=== PATIENT | female | born 1950 | race Caucasian/White ===

== ENCOUNTER 2019-04-09 06:00 | Outpatient (RCR) | payer MEDICARE, OTHER, SELFPAY | END 2019-05-09 00:01 | LOC: GPT 06:00 | PROVIDERS: Family Provider Nurse Practitioner Family; Visit Provider Family Medicine | DX: S29.001D Unspecified injury of muscle and tendon of front wall of thorax, subsequent encounter (principal); X58.XXXD Exposure to other specified factors, subsequent encounter | CPT/HCPCS: 97110 ×7; 97140 ×7 ==

== ENCOUNTER 2019-05-10 06:00 | Outpatient (RCR) | payer MEDICARE, OTHER, SELFPAY | END 2019-06-09 23:59 | disposition home or self-care (01) | LOC: GPT 06:00 | PROVIDERS: Family Provider Nurse Practitioner Family; PCP Nurse Practitioner Family; Visit Provider Family Medicine | DX: S29.011D Strain of muscle and tendon of front wall of thorax, subsequent encounter (principal); X58.XXXD Exposure to other specified factors, subsequent encounter ==

== ENCOUNTER → 2019-10-17 10:29 | Outpatient (BNVA) | payer MEDICARE, OTHER, SELFPAY | PROVIDERS: Family Provider Nurse Practitioner Family; PCP Nurse Practitioner Family; Visit Provider Nurse Practitioner Family | DX: Z78.0 Asymptomatic menopausal state (principal); Z13.820 Encounter for screening for osteoporosis; Z12.39 Encounter for other screening for malignant neoplasm of breast; Z13.29 Encounter for screening for other suspected endocrine disorder; Z12.6 Encounter for screening for malignant neoplasm of bladder; Z13.6 Encounter for screening for cardiovascular disorders; Z00.00 Encounter for general adult medical examination without abnormal findings; R82.90 Unspecified abnormal findings in urine; I10 Essential (primary) hypertension | CPT/HCPCS: 80053; 80061; 81000; 84439; 84443; 87077; 87086; 87186 ==

== ENCOUNTER 2019-12-15 13:50 | Outpatient (CLI) | payer MEDICARE, OTHER, SELFPAY ==
--- NOTE | 2019-12-15 14:30 | MM_ITS ---
WS: [id number] BILATERAL SCREENING DIGITAL MAMMOGRAM WITH CAD HISTORY: screening for non malignant neoplasm of the breast COMPARISON: 10/26/2016 Bilateral CC and MLO views submitted. Computer aided detection analyzed. Breast composition: There are scattered areas of fibroglandular density. No suspicious masses, microc alcifications or architectural distortion. Benign calcifications in each breast. MM/[place] [id number] IMPRESSION: BI-RADS: 2-Benign FOLLOW UP: 1 Year Follow-up
--- NOTE | 2019-12-15 15:15 | XR_ITS ---
WS: [id number] SCREENING DEXA SCAN [employer] CLINICAL INFORMATION: post menopausal COMPARISON: None. FINDINGS: The L1-L4 bone mineral density measures 1.020 g/cm2. This corresponds to a T score score of -1.3 and Z score of 0.7. Left femoral neck bone mineral density measures 0.735 g/cm2. This corresponds to a T score of -2.2 an d Z score of -0.4. Right femoral neck bone mineral density measures 0.747 g/cm2. This corresponds to a T score -2.1of an d Z score of -0.3. Mean femoral neck bone mineral density measures 0.741 g/cm2. This corresponds to a T score of -2.1 an d Z score of -0.4. XR/XR DEXA axial skeleton* [id number] IMPRESSION: Osteopenia lumbar spine and femoral necks. Osteopenia of the femoral necks at t he upper end of the range. Patient's FRAX calculated 10 year probability for major osteoporotic fracture i s 13.4 % and osteoporotic hip fracture is 3.2%.
== END 2019-12-15 13:51 | disposition home or self-care (01) ==
LOC: RADSHAW 13:50
PROVIDERS: PCP Family Medicine; Visit Provider Nurse Practitioner Family
DX: Z12.31 Encounter for screening mammogram for malignant neoplasm of breast (principal); Z78.0 Asymptomatic menopausal state; M85.89 Other specified disorders of bone density and structure, multiple sites
CPT/HCPCS: 77067; 77080

== ENCOUNTER → 2020-11-25 09:23 | Outpatient (BNVA) | payer MEDICARE, OTHER, SELFPAY | PROVIDERS: PCP Family Medicine; Visit Provider Nurse Practitioner Family | DX: E78.5 Hyperlipidemia, unspecified (principal); I10 Essential (primary) hypertension; E83.42 Hypomagnesemia; E55.9 Vitamin D deficiency, unspecified | CPT/HCPCS: 80053; 80061; 82306; 83735; 84439; 84443; 85025 ==

== ENCOUNTER 2020-12-30 11:01 | Outpatient (CLI) | payer MEDICARE, OTHER, SELFPAY ==
--- NOTE | 2020-12-30 11:08 | MM_ITS ---
WS: [id number] BILATERAL SCREENING DIGITAL MAMMOGRAM WITH CAD HISTORY: SCREENING COMPARISON: 12/15/2019 and 10/26/2016 Bilateral CC and MLO views submitted. Computer aided detection analyzed. Breast composition: There are scattered areas of fibroglandular density. No suspicious masses, microc alcifications or architectural distortion. Benign calcifications in each breast. MM/[place] [id number] IMPRESSION: BI-RADS: 2-Benign FOLLOW UP: 1 Year Follow-up
== END 2020-12-30 11:02 | disposition home or self-care (01) ==
LOC: RADSHAW 11:06
PROVIDERS: PCP Family Medicine; Visit Provider Family Medicine
DX: Z12.31 Encounter for screening mammogram for malignant neoplasm of breast (principal)
CPT/HCPCS: 77067

== ENCOUNTER → 2021-01-21 13:05 | Outpatient (BNVA) | payer MEDICARE, OTHER, SELFPAY | PROVIDERS: PCP Family Medicine; Visit Provider Nurse Practitioner Family | DX: M79.641 Pain in right hand (principal) | CPT/HCPCS: 73130 ==

== ENCOUNTER → 2022-01-15 10:00 | Outpatient (BNVA) | payer MEDICARE, SELFPAY | PROVIDERS: PCP Family Medicine; Visit Provider Nurse Practitioner Family | DX: E78.5 Hyperlipidemia, unspecified (principal); I10 Essential (primary) hypertension; E55.9 Vitamin D deficiency, unspecified; E53.8 Deficiency of other specified B group vitamins; Z68.21 Body mass index [BMI] 21.0-21.9, adult | CPT/HCPCS: 80053; 80061; 82607; 82652; 84443 ==

== ENCOUNTER 2022-01-26 13:34 | Outpatient (CLI) | payer MEDICARE, BC, SELFPAY ==
--- NOTE | 2022-01-26 13:47 | MM_ITS ---
WS: [id number] BILATERAL 3D TOMOSYNTHESIS DIGITAL SCREENING MAMMOGRAPHY WITH CAD CLINICAL INFORMATION: SCREEN HISTORY: Screening mammogram. No current complaints. COMPARISON: December 30, 2020 TECHNIQUE: Bilateral CC and MLO views. FINDINGS: Scattered fibroglandular densities bilaterally. Incidental punctate calcifications. Secretory calcifi cations RIGHT breast unchanged. Vascular calcification. No suspicious focal mass, asymmetry, calcific ations, or architectural distortion. No evidence of malignancy. MM/[place] [id number] IMPRESSION: BI-RADS: 2-Benign FOLLOW UP: 1 Year Follow-up Recommend return to annual screening mammography.
== END 2022-01-26 13:35 | disposition home or self-care (01) ==
PROVIDERS: PCP Family Medicine; Visit Provider Family Medicine
DX: Z12.31 Encounter for screening mammogram for malignant neoplasm of breast (principal)
CPT/HCPCS: 77063; 77067

== ENCOUNTER → 2023-02-09 15:37 | Outpatient (BNVA) | payer MEDICARE, BC, SELFPAY | PROVIDERS: PCP Family Medicine; Visit Provider Nurse Practitioner Family | DX: I10 Essential (primary) hypertension (principal); E78.5 Hyperlipidemia, unspecified; E53.8 Deficiency of other specified B group vitamins; E55.9 Vitamin D deficiency, unspecified | CPT/HCPCS: 80053; 80061; 82607; 84443 ==

== ENCOUNTER → 2023-06-08 15:10 | Outpatient (BNVA) | payer MEDICARE, SELFPAY | PROVIDERS: PCP Family Medicine; Visit Provider Nurse Practitioner Family | DX: K59.00 Constipation, unspecified (principal); R10.9 Unspecified abdominal pain | CPT/HCPCS: 74018 ==

== ENCOUNTER → 2023-11-29 14:00 | Outpatient (BNVA) | payer MEDICARE, SELFPAY | PROVIDERS: PCP Nurse Practitioner Family; Referring Provider Family Medicine; Visit Provider Surgery | DX: K22.70 Barrett's esophagus without dysplasia; R11.0 Nausea; Z86.010 Personal history of colon polyps; R10.13 Epigastric pain | CPT/HCPCS: 99204 ==

== ENCOUNTER 2023-12-24 07:50 | Outpatient (CLI) | payer MEDICARE, SELFPAY ==
--- NOTE | 2023-12-24 08:00 | US_ITS ---
WS: [id number] RIGHT UPPER QUADRANT ULTRASOUND HISTORY: abdominal pain COMPARISON: None available. Liver: 12.6 cm in length. Normal size liver and echogenicity. No bile duct dilatation or mass. Portal Vein: Normal hepatopetal flow with monophasic waveform. Gallbladder: Normally distended gallbladder with no stones or wall thickening. CBD: 0.2 cm Pancreas: Pancreatic head is not well visualized. The remaining pancreas is negative. Right kidney: 8.2 cm in length. RIGHT kidney is measuring low normal size. No hydronephrosis. Aorta and IVC: Mild atherosclerotic plaque within the aorta. No aneurysm. No ascites. US/US gall bladder [id number] IMPRESSION: 1. Negative gallbladder. No cholelithiasis. 2. Low normal size RIGHT kidney. 3. Pancreatic head is not visualized.
== END 2023-12-24 07:51 | disposition home or self-care (01) ==
LOC: RAD 07:51
PROVIDERS: PCP Nurse Practitioner Family; Visit Provider Surgery
DX: R10.11 Right upper quadrant pain (principal)
CPT/HCPCS: 76705

== ENCOUNTER 2023-12-29 08:53 | Outpatient (CLI) | payer MEDICARE, SELFPAY ==
--- NOTE | 2023-12-29 09:00 | MM_ITS ---
WS: [id number] Bilateral screening 3D tomosynthesis digital mammogram, 12/30/2023 Clinical Data: SCREENING Comparison: 01/25/2022, 12/30/2020, 12/15/2019, 10/26/2016, 05/22/2008. Findings: The breast parenchymal pattern shows fibroglandular tissue no spiculated masses or clustered calcific ations are seen. There are no secondary signs of carcinoma. There are scattered benign calcifications throughout both breasts. There are mole markers on both breasts. MM/[place] [id number] Impression: 1. Negative bilateral mammogram unchanged. 2. Recommend annual screening mammograms. BIRADS: 1-Negative FOLLOW UP: 1 Year Follow-up The CAD work checker was used.
== END 2023-12-29 08:54 | disposition home or self-care (01) ==
LOC: MOBLMAM 09:01
PROVIDERS: PCP Family Medicine; Visit Provider Family Medicine
DX: Z12.31 Encounter for screening mammogram for malignant neoplasm of breast (principal)
CPT/HCPCS: 77063; 77067

== ENCOUNTER 2024-01-19 09:07 | Day surgery (SDC) | payer MEDICARE, SELFPAY ==
[2024-01-19 09:33] VITALS: BP 172/71; PULSE 79; RESP 16; TEMP 36.1; O2SAT 100; BMI 21.4
--- NOTE | 2024-01-19 09:44 | ANES.PREANE2 ---
Pre-Anesthetic Assessment Height/Weight: Height 1.5 m Weight 48.081 kg Temp Pulse Resp BP Pulse Ox O2 Del Method 97.0 F L 79 16 172/71 100 Room Air 01/19/24 09:33 01/19/24 09:33 01/19/24 09:33 01/19/24 09:33 01/19/24 09:33 01/19/24 09:33 Operation Date: 01/19/24 10:30 Proposed Procedures p EGD Dilation W/ Balloon [id number], [id number],G0105, R10.9, K22.70(Not Applicable) - Devante Paige DO s Colonoscopy(Not Applicable) - Devante Paige DO Familial anesthetic complications: Takes time to wake up Was Beta Hanny taken within 24 hours: N/A Was Clonidine taken within 24 hours: N/A Last intake: Intake Last Liquid Date 01/18/24 Last Liquid Time 20:00 Last Solid Date 01/17/24 Last Solid Time 13:30 Social No alcohol and No tobacco Exam alert, oriented x 3, clear to auscultation bilaterally and regular rate & rhythm Airway Submandibular: within normal limits Cervical ROM: Other (Decreased ROM) Mallampati: Class II Dentition: full History/ROS No significant history except as noted and No significant complaints Pulmonary None reported CV/HEM Hypertension None reported Hepatic None reported GI Gastroesophageal Reflux Disease (None this morning, controlled with meds) and Hiatal Hernia Metabolic Hyperlipidemia Musc/skel Osteoarthritis/DJD Neuropsych None reported Anesthetic Plan ASA status: 2 Anesthesia: Anesthesia Evaluation, General and MAC Risk of > 500 ml blood loss (7ml/kg in children): No Medications/Allergies Home Medications Medication Instructions Recorded Confirmed Last Taken Type ascorbate calcium (vitamin C) 500 500 mg PO DAILY 07/11/19 01/19/24 01/17/24 History mg tablet aspirin 81 mg tablet,delayed 81 mg PO DAILY 07/11/19 01/19/24 01/18/24 History release (Adult Aspirin Regimen) folic acid 1 mg tablet 5 mg PO DAILY 07/11/19 01/19/24 01/18/24 History glucosamine HCl 1 tab PO DAILY 07/11/19 01/19/24 01/18/24 History magnesium chloride 64 mg 64 mg PO DAILY 07/11/19 01/19/24 01/18/24 History (magnesium chloride) tablet,delayed release multivitamin (Daily Multi-Vitamin 1 tab PO DAILY 07/11/19 01/19/24 01/18/24 History tablet) turmeric 1 tab PO DAILY 07/11/19 01/19/24 01/18/24 History vitamin E 200 unit capsule 400 unit PO DAILY 07/11/19 01/19/24 01/18/24 History vitamin B complex (B 1 tab PO DAILY 08/15/19 01/19/24 01/18/24 History Complex-Vitamin B12 tablet) cholecalciferol (vitamin D3) 625 625 mcg PO DAILY 12/20/19 01/19/24 01/17/24 History mcg (25,000 unit) capsule atorvastatin 10 mg tablet 10 mg PO DAILY #90 tabs 02/09/23 01/19/24 01/18/24 Rx lisinopril 10 mg tablet 10 mg PO DAILY #90 tabs 02/09/23 01/19/24 01/18/24 Rx omeprazole 20 mg capsule,delayed 20 mg PO DAILY #90 caps 02/09/23 01/19/24 01/18/24 Rx release triamcinolone acetonide 0.1 % 1 applic topical BID PRN Rash 01/17/24 01/19/24 01/19/24 History topical cream Allergies Allergy/AdvReac Type Severity Reaction Status Date / Time adhesive tape Allergy Unknown Verified 01/17/24 11:53 codeine Allergy Unknown Verified 01/17/24 11:53 diazepam [From Valium] Allergy Unknown Verified 01/17/24 11:53 meperidine [From Demerol] Allergy Unknown Verified 01/17/24 11:53 [facility] Anesthesia Medical History History of colon polyps Hyperlipidemia Essential hypertension Tirado's esophagus with low grade dysplasia Chronic right-sided thoracic back pain Cervical disc disorder with myelopathy of mid-cervical region Intervertebral disc disorder with radiculopathy of lumbosacral region Enrolled in chronic care management Surgical History History of back surgery History of hysterectomy due to cancer History of appendectomy Social History Smoking and tobacco/nicotine status: unknown if used tobacco/nicotine Quit status (tobacco/nicotine): has quit using Year quit tobacco: 1993 Alcohol intake: never Substance/Drug Use: never Data Anesthesia Cardiac Studies: No Data to Display
[2024-01-19] MEDS: sodium chloride 0.9% 1,000 ML 30 ML IV (09:50)
--- NOTE | 2024-01-19 10:52 | PM.HP ---
Providers/Chief Complaint Primary Care Provider: Pedro Luis Tran DO Chief Complaint: R10.9 History of Present Illness Lisbet Guerrero is a 73 year old female Review of Systems General: Reports: 10 or more systems reviewed and unremarkable except in HPI and below Medications/Allergies Home Medications Medication Instructions Recorded Confirmed Last Taken Type ascorbate calcium (vitamin C) 500 500 mg PO DAILY 07/11/19 01/19/24 01/17/24 History mg tablet aspirin 81 mg tablet,delayed 81 mg PO DAILY 07/11/19 01/19/24 01/18/24 History release (Adult Aspirin Regimen) folic acid 1 mg tablet 5 mg PO DAILY 07/11/19 01/19/24 01/18/24 History glucosamine HCl 1 tab PO DAILY 07/11/19 01/19/24 01/18/24 History magnesium chloride 64 mg 64 mg PO DAILY 07/11/19 01/19/24 01/18/24 History (magnesium chloride) tablet,delayed release multivitamin (Daily Multi-Vitamin 1 tab PO DAILY 07/11/19 01/19/24 01/18/24 History tablet) turmeric 1 tab PO DAILY 07/11/19 01/19/24 01/18/24 History vitamin E 200 unit capsule 400 unit PO DAILY 07/11/19 01/19/24 01/18/24 History vitamin B complex (B 1 tab PO DAILY 08/15/19 01/19/24 01/18/24 History Complex-Vitamin B12 tablet) cholecalciferol (vitamin D3) 625 625 mcg PO DAILY 12/20/19 01/19/24 01/17/24 History mcg (25,000 unit) capsule atorvastatin 10 mg tablet 10 mg PO DAILY #90 tabs 02/09/23 01/19/24 01/18/24 Rx lisinopril 10 mg tablet 10 mg PO DAILY #90 tabs 02/09/23 01/19/24 01/18/24 Rx omeprazole 20 mg capsule,delayed 20 mg PO DAILY #90 caps 02/09/23 01/19/24 01/18/24 Rx release triamcinolone acetonide 0.1 % 1 applic topical BID PRN Rash 01/17/24 01/19/24 01/19/24 History topical cream Allergies Allergy/AdvReac Type Severity Reaction Status Date / Time adhesive tape Allergy Unknown Verified 01/17/24 11:53 codeine Allergy Unknown Verified 01/17/24 11:53 diazepam [From Valium] Allergy Unknown Verified 01/17/24 11:53 meperidine [From Demerol] Allergy Unknown Verified 01/17/24 11:53 PFSH Acute PFSH: Medical History History of colon polyps Hyperlipidemia Essential hypertension Tirado's esophagus with low grade dysplasia Chronic right-sided thoracic back pain Cervical disc disorder with myelopathy of mid-cervical region Intervertebral disc disorder with radiculopathy of lumbosacral region Enrolled in chronic care management Surgical History History of back surgery History of hysterectomy due to cancer History of appendectomy Social History Smoking and tobacco/nicotine status: unknown if used tobacco/nicotine Quit status (tobacco/nicotine): has quit using Year quit tobacco: 1993 Alcohol intake: never Substance/Drug Use: never Vitals/I&O/Wt Last Vital Signs Temp 97.0 F L 01/19/24 09:33 Pulse 79 01/19/24 09:33 Resp 16 01/19/24 09:33 BP 172/71 01/19/24 09:33 Pulse Ox 100 01/19/24 09:33 O2 Del Method Room Air 01/19/24 09:33 Weight last 48 hrs Weight 106 lb A&P Assessment and plan (1) Abdominal pain: (2) Tirado esophagus: (3) History of colon polyps: Plan EGD with possible balloon dilation Colonoscopy Attestations Medical Necessity Statement*: Home Coding Level of Care Code Acute Code for Chg Fwd Diagnoses Abdominal pain R10.9 Tirado esophagus K22.70 History of colon polyps Z86.010
[2024-01-19 11:15] VITALS: BP 119/57; PULSE 67; RESP 14; TEMP 36.2; O2SAT 99
[2024-01-19 11:23] VITALS: BP 116/58; PULSE 63; RESP 14; O2SAT 99
[2024-01-19 11:30] VITALS: BP 133/59; PULSE 68; RESP 16; O2SAT 99
--- NOTE | 2024-01-19 12:00 | ANE.PACU2 ---
Inpatient post-anesthesia follow up: Airway intact: Yes Vital signs: Temperature 97.1 F Pulse Rate 68 Respiratory Rate 16 Blood Pressure 133/59 Pulse Oximetry 99 Oxygen Delivery Me thod Room Air Oxygen Flow Rate Fraction of Inspir ed Oxygen Hydration adequate: Yes Nausea and vomiting: No Pain level: 1 Mental status: Baseline
== END 2024-01-19 12:00 | disposition home or self-care (01) ==
PROVIDERS: PCP Family Medicine; Visit Provider Surgery
PROC: 0DJD8ZZ Inspection of Lower Intestinal Tract, Via Natural or Artificial Opening Endoscopic (ICD-10-PCS; CPT 45378; 2024-01-19 10:30)
DX: R10.9 Unspecified abdominal pain (principal); K22.70 Barrett's esophagus without dysplasia; Z86.010 Personal history of colon polyps; E78.5 Hyperlipidemia, unspecified; I10 Essential (primary) hypertension; K29.50 Unspecified chronic gastritis without bleeding; K21.9 Gastro-esophageal reflux disease without esophagitis; K22.2 Esophageal obstruction
CPT/HCPCS: 43239; 43249; 45378; 88305; 88342; J2704; J7030

== ENCOUNTER → 2024-01-31 13:35 | Outpatient (BNVA) | payer MEDICARE, SELFPAY | PROVIDERS: PCP Family Medicine; Visit Provider Surgery | DX: Z09 Encounter for follow-up examination after completed treatment for conditions other than malignant neoplasm (principal); K80.50 Calculus of bile duct without cholangitis or cholecystitis without obstruction; K22.2 Esophageal obstruction; K22.70 Barrett's esophagus without dysplasia; Z86.010 Personal history of colon polyps; R11.0 Nausea; R10.9 Unspecified abdominal pain | CPT/HCPCS: 99214 ==

== ENCOUNTER 2024-02-22 08:30 | Day surgery (SDC) | payer MEDICARE, SELFPAY ==
[2024-02-22] VITALS (9 sets, daily range): BP systolic 144–186; BP diastolic 70–86; PULSE 55–82; RESP 16–18; TEMP 36.4–36.6; O2SAT 99–100
--- NOTE | 2024-02-22 08:24 | P.ANESASSM_ITS ---
Pre-Anesthetic Assessment Height/Weight: Height 4 ft 11 in Preop Diagnosis: Cholecystitis Operation Date: 02/22/24 10:45 Proposed Procedures p Laparoscopic Cholecystectomy 81787, R10.9(Not Applicable) - Devante Paige, DO Was Beta Hanny taken within 24 hours: N/A Was Clonidine taken within 24 hours: N/A Social No alcohol and No tobacco Quit smoking 20 years ago Exam alert, oriented x 3, clear to auscultation bilaterally and regular rate & rhythm Airway Submandibular: within normal limits Cervical ROM: within normal limits Mallampati: Class II Dentition: full and other (Few missing teeth) Anesthetic Plan ASA status: 2 Anesthesia: General Other: Patient states that she is very slow to wake up from anesthesia and cannot have anything with codeine NPO since yesterday evening History of GERD on omeprazole. Patient has a history of Tirado esophagus. Patient recently had esophageal dilation. No issues Hypertension on lisinopril METs greater than 4 Plan for GETA Medications/Allergies Home Medications Medication Instructions Recorded Confirmed Last Taken Type ascorbate calcium (vitamin C) 500 500 mg PO DAILY 07/11/19 02/22/24 02/21/24 History mg tablet aspirin 81 mg tablet,delayed 81 mg PO DAILY 07/11/19 02/22/24 02/20/24 History release (Adult Aspirin Regimen) folic acid 1 mg tablet 5 mg PO DAILY 07/11/19 02/22/24 02/21/24 History glucosamine HCl 1 tab PO BID 07/11/19 02/22/24 02/21/24 History magnesium chloride 64 mg 64 mg PO DAILY 07/11/19 02/22/24 02/21/24 History (magnesium chloride) tablet,delayed release multivitamin (Daily Multi-Vitamin 1 tab PO DAILY 07/11/19 02/22/24 02/21/24 History tablet) turmeric 1 tab PO DAILY 07/11/19 02/22/24 02/21/24 History vitamin E 200 unit capsule 400 unit PO DAILY 07/11/19 02/22/24 02/21/24 History vitamin B complex (B 1 tab PO DAILY 08/15/19 02/22/24 02/21/24 History Complex-Vitamin B12 tablet) cholecalciferol (vitamin D3) 625 625 mcg PO DAILY 12/20/19 02/22/24 02/21/24 History mcg (25,000 unit) capsule triamcinolone acetonide 0.1 % See Rx Instructions .Route 02/15/24 02/22/24 Unknown Rx topical cream .COMPLEX #80 grams atorvastatin 10 mg tablet 10 mg PO DAILY 02/21/24 02/22/24 02/21/24 History lisinopril 10 mg tablet 10 mg PO DAILY 02/21/24 02/22/24 02/21/24 History omeprazole 20 mg capsule,delayed 20 mg PO DAILY 02/21/24 02/22/24 02/21/24 History release Allergies Allergy/AdvReac Type Severity Reaction Status Date / Time adhesive tape Allergy Unknown Verified 01/31/24 14:00 codeine Allergy Unknown Verified 01/31/24 14:00 diazepam [From Valium] Allergy ADR/ALGY-Pa Verified 02/22/24 08:40 lpitations meperidine [From Demerol] Allergy Unknown Verified 01/31/24 14:00 [facility] Anesthesia Medical History (Updated 01/31/24 @ 14:14 by Devante Paige DO) History of colon polyps Tirado esophagus Hyperlipidemia Essential hypertension Tirado's esophagus with low grade dysplasia Chronic right-sided thoracic back pain Cervical disc disorder with myelopathy of mid-cervical region Intervertebral disc disorder with radiculopathy of lumbosacral region Enrolled in chronic care management Surgical History History of back surgery History of hysterectomy due to cancer History of appendectomy Social History Smoking and tobacco/nicotine status: never used tobacco/nicotine Quit status (tobacco/nicotine): has quit using Year quit tobacco: 1993 Alcohol intake: never Substance/Drug Use: never Data Anesthesia Cardiac Studies: No Data to Display
--- NOTE | 2024-02-22 08:45 | W.PM.OPSUD ---
Surgery/Procedure H&P Update DATE OF PROCEDURE: February 22, 2024 DATE H&P PERFORMED: 01/31/24 H&P UPDATE INFORMATION: I have reviewed H&P completed within last 30 days, I have examined patient prior to procedure and No changes to prior documentation PLANNED PROCEDURE: Operation Date: 02/22/24 10:45 Proposed Procedures p Laparoscopic Cholecystectomy 38689, R10.9(Not Applicable) - Devante Paige, DO
[2024-02-22] MEDS: sodium chloride 0.9% 1,000 ML 30 ML IV (08:59)
[2024-02-22] MEDS: ceFAZolin 2,000 mg SDV 2000 MG IVP (09:27)
[2024-02-22] MEDS: lidocaine-epi 2% PF 1:200,000 20 mL SDV XX (10:03)
--- NOTE | 2024-02-22 10:22 | P.OP_ITS ---
Operative Report Date of procedure: February 22, 2024 Surgeon: Devante Paige DO Procedure: Preoperative diagnosis: Biliary colic Postoperative diagnosis: Same Procedure performed: Laparoscopic cholecystectomy Surgeon: Dr. Devante Paige DO Estimated blood loss: 20 mL Specimens: Gallbladder to pathology Implants: Surgicel Complications: None apparent Description of procedure: Patient was wheeled into the operative room and placed on the OR table in a supine position. Abdomen was inspected prepped and draped in usual sterile fashion. Time-out was performed and all present were in agreement. A 15 blade scalp was used to make a 5 mm incision in the left upper quadrant and intra- abdominal insufflation was achieved using a Veress needle. A 5 mm trocar was then placed through this incision. Omentum and small bowel were found scarred to the anterior abdominal wall around the umbilicus. Omental adhesions were taken down bluntly taking care not to injure the small bowel. After localizing the tissue incisions were made and a 5 millimeter trocar was placed supraumbilically as well as 2 in the right upper quadrant. A 12 millimeter trocar was placed in the epigastrium. There was significant omental adhesions to the gallbladder which were taken down with electrocautery. Gallbladder was grasped and elevated. The triangle of Calot was carefully dissected using blunt dissection and electrocautery until the triangle of Calot clearly identified. The cystic duct was clipped proximally and double clipped distally. The duct was then ligated proximally. The cystic artery was doubly clipped and ligated. The gallbladder was then removed from the liver bed using electrocautery. The gallbladder was removed from the abdomen using an Endo-Catch bag through the epigastric incision. The liver bed was inspected bleeding was controlled with electrocautery and a piece of Surgicel.. The abdomen was irrigated and suctioned. All ports removed. Skin was washed and dried. Incisions were closed with 4-0 Monocryl in a subcuticular interrupted fashion. Skin glue was applied. Patient tolerated the procedure well.
--- NOTE | 2024-02-22 11:50 | ANE.PACU2 ---
Inpatient post-anesthesia follow up: Airway intact: Yes Vital signs: Temperature 97.6 F Pulse Rate 58 Respiratory Rate 16 Blood Pressure 170/73 Pulse Oximetry 100 Oxygen Delivery Me thod Room Air Oxygen Flow Rate Fraction of Inspir ed Oxygen Hydration adequate: Yes Nausea and vomiting: No Pain level: 1 Mental status: Baseline
== END 2024-02-22 11:50 | disposition home or self-care (01) ==
PROVIDERS: PCP Family Medicine; Visit Provider Surgery
PROC: 0FT44ZZ Resection of Gallbladder, Percutaneous Endoscopic Approach (ICD-10-PCS; CPT 47562; principal; 2024-02-22 10:45)
DX: K81.1 Chronic cholecystitis (principal); K21.9 Gastro-esophageal reflux disease without esophagitis; I10 Essential (primary) hypertension; E78.5 Hyperlipidemia, unspecified; Z79.82 Long term (current) use of aspirin; Z86.0100 Personal history of colon polyps, unspecified
CPT/HCPCS: 47562; 88304; J0690; J1100; J2405; J2704; J2710; J3010; J3490; J7030

== ENCOUNTER → 2024-03-06 08:03 | Outpatient (BNVA) | payer MEDICARE, SELFPAY | PROVIDERS: PCP Nurse Practitioner Family; Visit Provider Surgery | DX: R03.0 Elevated blood-pressure reading, without diagnosis of hypertension (principal); Z90.49 Acquired absence of other specified parts of digestive tract; Z98.890 Other specified postprocedural states | CPT/HCPCS: 99024 ==

== ENCOUNTER → 2024-03-08 11:40 | Outpatient (BNVA) | payer MEDICARE, SELFPAY | PROVIDERS: PCP Nurse Practitioner Family; Visit Provider Nurse Practitioner Family | DX: I10 Essential (primary) hypertension (principal); E55.9 Vitamin D deficiency, unspecified; E53.8 Deficiency of other specified B group vitamins | CPT/HCPCS: 80053; 80061; 82306; 82607; 83735 ==

== ENCOUNTER → 2024-08-30 09:30 | Outpatient (BNVA) | payer MEDICARE, SELFPAY | PROVIDERS: PCP Nurse Practitioner Family; Visit Provider Nurse Practitioner Family | DX: I10 Essential (primary) hypertension (principal); E53.8 Deficiency of other specified B group vitamins; E83.42 Hypomagnesemia | CPT/HCPCS: 80053; 80061; 82607; 83735 ==

== ENCOUNTER → 2024-09-27 09:21 | Outpatient (BNVA) | payer MEDICARE, SELFPAY | PROVIDERS: PCP Nurse Practitioner Family; Visit Provider Nurse Practitioner Family | DX: M19.032 Primary osteoarthritis, left wrist (principal); W19.XXXA Unspecified fall, initial encounter | CPT/HCPCS: 73110 ==

== ENCOUNTER → 2024-10-10 09:28 | Outpatient (BNVA) | payer MEDICARE, SELFPAY | PROVIDERS: PCP Nurse Practitioner Family; Visit Provider Orthopaedic Surgery | DX: M25.532 Pain in left wrist (principal); S52.532A Colles' fracture of left radius, initial encounter for closed fracture; W18.39XA Other fall on same level, initial encounter | CPT/HCPCS: 73110; 99204 ==

== ENCOUNTER 2024-10-10 14:10 | Outpatient (CLI) | payer MEDICARE, SELFPAY | END 2024-10-10 14:11 | disposition home or self-care (01) | LOC: SPT 14:11 | PROVIDERS: PCP Nurse Practitioner Family; Visit Provider Orthopaedic Surgery | DX: Z46.89 Encounter for fitting and adjustment of other specified devices (principal); S52.592D Other fractures of lower end of left radius, subsequent encounter for closed fracture with routine healing; X58.XXXD Exposure to other specified factors, subsequent encounter | CPT/HCPCS: L3908 ==

== ENCOUNTER → 2024-10-31 08:52 | Outpatient (BNVA) | payer MEDICARE, SELFPAY | PROVIDERS: PCP Nurse Practitioner Family; Visit Provider Orthopaedic Surgery | DX: S52.532D Colles' fracture of left radius, subsequent encounter for closed fracture with routine healing (principal); X58.XXXD Exposure to other specified factors, subsequent encounter | CPT/HCPCS: 73110; 99213 ==

== ENCOUNTER 2024-12-22 13:28 | Outpatient (CLI) | payer MEDICARE, SELFPAY ==
--- NOTE | 2024-12-22 13:30 | XR_ITS ---
WS: [id number] SCREENING DEXA SCAN [facility] CLINICAL INFORMATION: Z78.0 - Asymptomatic menopausal state COMPARISON: 2019 FINDINGS: The L1-L4 bone mineral density measures 0.936 g/cm2. This corresponds to a T score score of -2.0 and Z score of 0.2. Left femoral neck bone mineral density measures 0.663 g/cm2. This corresponds to a T score of -2.7 and Z score of -0.6. Right femoral neck bone mineral density measures 0.625 g/cm2. This corresponds to a T score -3.0of and Z score of -1.0. Mean femoral neck bone mineral density measures 0.644 g/cm2. This corresponds to a T score of -2.9 and Z score of -0.8. XR/XR DEXA axial skeleton* [id number] IMPRESSION: Osteopenia lumbar spine. Osteoporosis femoral necks. Patient's FRAX calculated 10 year probability for major osteoporotic fracture i s 29.0% and osteoporotic hip fracture is 10.8%. Bone density lumbar spine decreased -8.2% Bone density femoral necks decreased -13.1%
== END 2024-12-22 13:29 | disposition home or self-care (01) ==
LOC: RAD 13:29
PROVIDERS: PCP Nurse Practitioner Family; Visit Provider Nurse Practitioner Family
DX: Z13.820 Encounter for screening for osteoporosis (principal); Z78.0 Asymptomatic menopausal state; M85.88 Other specified disorders of bone density and structure, other site; M81.0 Age-related osteoporosis without current pathological fracture
CPT/HCPCS: 77080

== ENCOUNTER 2025-01-23 09:25 | Outpatient (CLI) | payer MEDICARE, SELFPAY ==
--- NOTE | 2025-01-23 09:20 | MM_ITS ---
WS: [id number] BILATERAL 3D TOMOSYNTHESIS DIGITAL SCREENING MAMMOGRAPHY WITH CAD CLINICAL INFORMATION: SCREENING HISTORY: Screening mammogram. No current complaints. COMPARISON: 2023 TECHNIQUE: Bilateral CC and MLO views. FINDINGS: Scattered fibroglandular densities bilaterally. No suspicious focal mass, asymmetry, calcifications, or architectural distortion. No evidence of malignancy. Incidental punctate and lucent centered calcifications. Secretory calcifications RIGHT breast. Vascular calcification. MM/MM scr BI tomosynthesis [id number] IMPRESSION: DENSITY: There are scattered areas of fibroglandular density. BI-RADS: 2 - Benign. FOLLOW UP: 1 Year Follow-up Recommend return to annual screening mammography.
== END 2025-01-23 09:26 | disposition home or self-care (01) ==
LOC: MOBLMAM 09:27
PROVIDERS: PCP Nurse Practitioner Family; Visit Provider Nurse Practitioner Family
DX: Z12.31 Encounter for screening mammogram for malignant neoplasm of breast (principal); R92.323 Mammographic fibroglandular density, bilateral breasts; R92.1 Mammographic calcification found on diagnostic imaging of breast
CPT/HCPCS: 77063; 77067

== ENCOUNTER → 2025-04-09 10:16 | Outpatient (BNVA) | payer MEDICARE, OTHER, SELFPAY | PROVIDERS: PCP Nurse Practitioner Family; Visit Provider Nurse Practitioner Family | DX: I10 Essential (primary) hypertension (principal); E53.8 Deficiency of other specified B group vitamins | CPT/HCPCS: 80053; 80061; 82607 ==